=== PATIENT | female | born 1960 | race Caucasian/White ===

== ENCOUNTER 2017-01-13 13:09 | Emergency (ER) | payer OTHER ==
[~2017-01-13] VITALS: Ht 165.1 cm; Wt 75.0 kg
[~2017-01-13 13:09] MED LIST: NO HOME MEDICATIONS; PHENERGAN 25 TA25 MG PO; ROXICODONE 55 MG/TAB PO; ZOFRAN 4MG T4 MG/TAB PO
[2017-01-13 13:10] VITALS: TEMP 98.9
[2017-01-13] MEDS ORDERED: LEVAQUIN 5500 MG/TA1 PO (14:14)
[2017-01-13] MEDS ORDERED: PREDNISONE20 MG PO (14:14)
[2017-01-13 14:23] VITALS: BP 115/92; PULSE 76
== END 2017-01-13 14:25 | disposition home or self-care (01) ==
LOC: COL.ER 13:09
DX: J45.909 Unspecified asthma, uncomplicated (principal); Z87.09 Personal history of other diseases of the respiratory system; F17.290 Nicotine dependence, other tobacco product, uncomplicated
CPT/HCPCS: J7512

== ENCOUNTER 2019-04-23 12:47 | Emergency (ER) | payer SELFPAY ==
[~2019-04-23] VITALS: Ht 165.1 cm; Wt 81.8 kg
[~2019-04-23 12:47] MED LIST changes: +LEVAQUIN 5500 MG/TA1 PO; +PREDNISONE20 MG PO
[2019-04-23 13:02] VITALS: TEMP 98.5
[2019-04-23 15:36] LABS: ALBUMIN 4.1 gm/dL (3.5-5.0); BILIRUBIN,TOTAL 0.4 mg/dL (0.0-1.0); C-REACTIVE PROTEIN 6.1 mg/dL (0.0-0.9); CALCIUM 8.9 mg/dL (8.4-10.2); CREATININE, serum 0.68 (0.52-1.25); POTASSIUM 4.3 mmol/L (3.4-5.0); TOTAL PROTEIN 7.3 gm/dL (6.4-8.2)
[2019-04-23 16:03] LABS: BASO # 0.1 (0.0-0.2); BASO % 0.5 % (0.0-2.0); EOS # 0.1 (0.0-0.7); EOS % 1.1 % (0-4.0); GRAN % 68.5 % (42.2-75.2); HEMATOCRIT 41.6 % (37.0-47.0); HEMOGLOBIN 13.4 g/dl (12.5-16.0); LYMPH # 1.6 (1.2-3.4); MEAN CELL VOLUME 93 fl (80.0-100.0); MEAN CORPUSCULAR HEMOGLOBIN 30 pg (27.0-31.0); MEAN CORPUSCULAR HGB CONC 32 g/dl (33.0-37.0); MEAN PLATELET VOLUME 10.5 fl (7.4-10.4); MONO # 1.4 (0.1-0.6); MONO % 13.5 % (1.7-9.3); PLATELET COUNT 219 K/mm3 (130-400); RED BLOOD COUNT 4.47 M/mm3 (4.10-5.30); REDCELL DISTRIBUTION WIDTH-CV 14.4 % (11.5-14.5)
[2019-04-23 16:11] LABS: COLLECTION METHOD CLEAN CATCH
[2019-04-23 16:19] LABS: MUCOUS Present /lpf; PH 6 (5-8); SQUAMOUS EPITHELIAL 0-2 /hpf; URINE APPEARANCE Clear; URINE BACTERIA None Seen /hpf; URINE BILIRUBIN Negative (NEGATIVE); URINE BLOOD Negative (NEGATIVE); URINE COLOR Yellow; URINE GLUCOSE Negative (NEGATIVE); URINE KETONE Negative (NEGATIVE); URINE LEUKOCYTE ESTERASE Negative (NEGATIVE); URINE NITRATE Negative (NEGATIVE); URINE PROTEIN(semi-quant) Negative (NEGATIVE); URINE UROBILINOGEN Negative (NEGATIVE)
[2019-04-23] MEDS ORDERED: NORCO 325 MG-51 TAB PO (16:45)
[2019-04-23] MEDS ORDERED: ZOFRAN ODT4 MG PO (16:45)
[2019-04-23 17:26] VITALS: BP 124/82; PULSE 78
== END 2019-04-23 17:26 | disposition home or self-care (01) ==
LOC: COL.ER 12:47
PROVIDERS: Family Medicine
DX: M54.5 Low back pain (principal); E11.9 Type 2 diabetes mellitus without complications; F17.210 Nicotine dependence, cigarettes, uncomplicated; Z90.89 Acquired absence of other organs; Z98.890 Other specified postprocedural states
CPT/HCPCS: J2405; J3010; J7030; Q9967

== ENCOUNTER 2020-10-08 16:36 | Emergency (ER) | payer SELFPAY ==
[~2020-10-08] VITALS: Ht 165.1 cm; Wt 70.5 kg
[~2020-10-08 16:36] MED LIST changes: +NORCO 325 MG-51 TAB PO; +ZOFRAN ODT4 MG PO
[2020-10-08 16:49] VITALS: TEMP 98.4
[2020-10-08 18:14] LABS: COLLECTION METHOD CLEAN CATCH
[2020-10-08 18:18] LABS: ALBUMIN 4.3 gm/dL (3.5-5.0); BILIRUBIN,TOTAL 0.6 mg/dL (0.0-1.0); CALCIUM 9.8 mg/dL (8.4-10.2); CREATININE, serum 0.69 (0.52-1.25); POTASSIUM 4.3 mmol/L (3.4-5.0); TOTAL PROTEIN 7.7 gm/dL (6.4-8.2)
[2020-10-08 18:23] LABS: BASO % 0.3 % (0.0-2.0); GRAN # 9.8 (1.4-6.5); GRAN % 85.3 % (42.2-75.2); HEMATOCRIT 49.4 % (37.0-47.0); HEMOGLOBIN 16.6 g/dl (12.5-16.0); LYMPH # 0.8 (1.2-3.4); LYMPH % 7.1 % (20.0-51.0); MEAN CELL VOLUME 90 fl (80.0-100.0); MEAN CORPUSCULAR HEMOGLOBIN 30 pg (27.0-31.0); MEAN CORPUSCULAR HGB CONC 34 g/dl (33.0-37.0); MEAN PLATELET VOLUME 10.9 fl (7.4-10.4); MONO # 0.8 (0.1-0.6); MONO % 6.9 % (1.7-9.3); PLATELET COUNT 318 K/mm3 (130-400); RED BLOOD COUNT 5.51 M/mm3 (4.10-5.30); REDCELL DISTRIBUTION WIDTH-CV 13.9 % (11.5-14.5)
[2020-10-08 18:24] LABS: MUCOUS Present /lpf; PH 6 (5-8); SQUAMOUS EPITHELIAL 0-2 /hpf; URINE APPEARANCE Hazy; URINE BACTERIA Rare /hpf; URINE BILIRUBIN Negative (NEGATIVE); URINE BLOOD 1+ (NEGATIVE); URINE COLOR Yellow; URINE GLUCOSE Negative (NEGATIVE); URINE KETONE Negative (NEGATIVE); URINE LEUKOCYTE ESTERASE Negative (NEGATIVE); URINE NITRATE Negative (NEGATIVE); URINE PROTEIN(semi-quant) 1+ (NEGATIVE)
[2020-10-08] MEDS ORDERED: ZOFRAN ODT4 MG PO (19:29)
[2020-10-08 19:33] VITALS: BP 133/82; PULSE 69
== END 2020-10-08 19:40 | disposition home or self-care (01) ==
LOC: COL.ER 16:36
PROVIDERS: Physician Assistant
DX: D72.829 Elevated white blood cell count, unspecified (principal); Z90.49 Acquired absence of other specified parts of digestive tract; Z90.89 Acquired absence of other organs; Z32.02 Encounter for pregnancy test, result negative
CPT/HCPCS: J2405

== ENCOUNTER 2021-01-04 13:18 | Emergency (ER) | payer SELFPAY ==
[~2021-01-04] VITALS: Ht 165.1 cm; Wt 74.1 kg
[2021-01-04 13:28] VITALS: BP 106/65; TEMP 98.3
[2021-01-04] MEDS ORDERED: NORCO 325 MG-51 TAB PO (14:12)
[2021-01-04 14:38] VITALS: PULSE 90
== END 2021-01-04 14:38 | disposition home or self-care (01) ==
LOC: COL.ER 13:18
DX: S29.011A Strain of muscle and tendon of front wall of thorax, initial encounter (principal); F17.210 Nicotine dependence, cigarettes, uncomplicated; X50.9XXA Other and unspecified overexertion or strenuous movements or postures, initial encounter